=== PATIENT | female | born 1950 ===

== ENCOUNTER 2017-05-10 10:40 | Observation (INO) ==
[2017-05-10] MEDS ORDERED: Aspirin 325 MG TABLET PO ONE (10:56)
--- NOTE | 2017-05-10 11:05 | Emergency Department Note ---
Disposition Clinical Impression: TIA (transient ischemic attack) Qualifiers: Transient cerebral ischemia type: unspecified Qualified Code(s): G45.9 - Transient cerebral ischemic attack, unspecified Disposition: Admitted As Inpatient Condition: Undetermined Time of Disposition: 13:09 Headache HPI - General Chief Complaint: ED Headache Stated Complaint: Headache Time Seen by Provider: 05/10/17 10:44 Source: patient Mode of arrival: ambulatory Limitations: no limitations Nursing Notes Reviewed: Yes Vital Signs Reviewed: Yes - History of Present Illness HPI Narrative: 66-year-old female arrives to [facility] emergency department complaining of headache and neurologic symptoms. The patient states that roughly 90 and this morning the patient was leaning over putting her socks on when she noticed a little bit of perioral paresthesias, garbled speech and her niece noted a right facial droop. In addition the patient states that she had a bilateral lower extremity numbness and tingling where she felt like they were in knots. The patient's family member decided to bring the patient to the emergency room for evaluation at that time. The patient states the symptoms have subsided at this time. She arrives to the emergency department roughly 2 hours after arrival. We will not call a stroke alert given the fact that the symptoms are resolved at this time. The patient is resting comfortably in bed and answering all questions appropriate without any focal neurologic deficits. The patient is complaining of a headache with a systolic blood pressure the 200s. Pt Subjective Complaint: headache Onset (ago): hour(s) (2) Location: global Pain Severity: mild, moderate Pain Scale: 6 Quality: aching Improves with: nothing Worsens with: none Associated symptoms: Reports: numbness Treatments prior to arrival: none - Related Data Home Medications Medication Instructions Recorded Confirmed Ascorbic Acid [Vitamin C] 250 mg PO DAILY 05/10/17 05/10/17 Cyanocobalamin (Vitamin B-12) 1,000 mcg SL DAILY 05/10/17 05/10/17 [Vitamin B-12] Folic Acid 1 mg PO DAILY 05/10/17 05/10/17 Losartan Potassium [Cozaar] 50 mg PO DAILY 05/10/17 05/10/17 Metoprolol XL (24 HR) Succ [Toprol 50 mg PO DAILY 05/10/17 05/10/17 XL] Mv-Mn/FA/Vit K/Lycop/Lut/Coq10 1 tab PO DAILY 05/10/17 05/10/17 [Daily Multivitamin Capsule] Vitamin B Complex [B Complex] 1 tab PO DAILY 05/10/17 05/10/17 Allergies Allergy/AdvReac Type Severity Reaction Status Date / Time aspirin AdvReac Nausea Verified 05/10/17 12:25 ibuprofen AdvReac Nausea Verified 05/10/17 12:25 All systems ED: reviewed and negative except as stated. Constitutional: Denies: fever, chills, weakness, weight change Eyes: Denies: eye pain, eye discharge, vision change ENT ED: Denies: ear pain, throat pain, dental pain, hearing loss, epistaxis, congestion, dysphagia Cardiovascular: Denies: chest pain, palpitations, dyspnea on exertion, edema, syncope Respiratory: Denies: cough, dyspnea, wheezes, hemoptysis, stridor Gastrointestinal: Denies: abdominal pain, nausea, vomiting, diarrhea, constipation, hematemesis, melena, hematochezia Genitourinary: Denies: dysuria, frequency, hematuria, discharge Musculoskeletal: Denies: back pain, neck pain, arthralgia, myalgia Integumentary: Denies: rash, abrasion, lesions Neurological: Reports: headache, weakness, numbness. Denies: paresthesias, confusion, abnormal gait, vertigo Headache PMH - Past Medical History Medical history: Reports: cancer, other Psychiatric history: Reports: no psych history - Social History Smoking Status: Never smoker Alcohol use: Reports: none Drug use: Reports: none Physical Exam - General Limitations: no limitations General appearance: alert, in no apparent distress - Head Head exam: atraumatic, normocephalic, normal inspection - Eye Eye exam: Present: normal appearance, PERRL, EOMI - ENT ENT exam: normal exam, normal oropharynx, mucous membranes moist - Neck Neck exam: Present: normal inspection, full ROM, trachea midline - Chest Chest inspection: Present: normal inspection, symmetric chest wall rise - Respiratory Respiratory exam: Present: normal lung sounds bilaterally - Cardiovascular Cardiovascular exam: Present: regular rate, normal rhythm, normal heart sounds - Abdominal Exam Abdominal exam: Present: soft, Non-Tender. Absent: tenderness, distention, guarding, rebound, rigidity - Extremities Exam Extremities exam: Present: normal inspection, full ROM. Absent: tenderness, pedal edema - Neurological Exam Neurological exam: Present: alert, oriented X3, CN II-XII intact, normal gait. Absent: motor sensory deficit - Expanded Neurological Exam Patient oriented to: Present: person, place, time Speech: Present: fluid speech Cranial nerves: EOM function (II, III, IV, ): Normal, facial sensation (V): Normal, facial palsy (VII): Normal, gag reflex (IX): Normal, spinal accessory function (XI): Normal, tongue deviation (XII): Normal Cerebellar function: normal gait Motor strength - LUE: 5/5 Motor strength - RUE: 5/5 Motor strength - LLE: 5/5 Motor strength - RLE: 5/5 Sensory exam upper extremity: light touch: Normal Sensory exam lower extremity: light touch: Normal Coma Scale Eye Opening: Spontaneous Coma Scale Motor Response: Obeys Commands Coma Scale Verbal Response: Oriented Coma Scale Total: 15 - Skin Skin exam: Present: warm, dry, intact, normal color Course Vital Signs Temperature 98.7 F 05/10/17 10:43 Pulse Rate 87 05/10/17 10:43 Respiratory Rate 16 05/10/17 10:43 Blood Pressure 193/95 05/10/17 10:43 O2 Sat by Pulse Oximetry 100 05/10/17 10:43 Temperature 98.7 F 05/10/17 10:43 Pulse Rate 84 05/10/17 13:11 Respiratory Rate 16 05/10/17 13:27 Blood Pressure 164/91 05/10/17 13:27 O2 Sat by Pulse Oximetry 99 05/10/17 13:11 Oxygen Delivery Oxygen Delivery Room Air Headache - MDM Narrative Medical decision making narrative: Patient's neurologic deficits were resolved upon arrival to the emergency department so a stroke alert was not activated. This is likely a TIA. Workup here in the emergency department demonstrates no acute findings. We spoke with Dr. Chaudhary in neurology who agrees to plan. We will place an official consult. The patient received aspirin. We will admit the patient to the hospitalist. Patient agrees to plan. Accepted by Dr. hodge. - Lab Data Lab results reviewed: Yes I reviewed the patient's lab results. Result diagrams: 05/10/17 11:25 05/10/17 11:25 Lab Results 05/10/17 05/10/17 05/10/17 Range/Units 11:25 11:25 11:25 WBC 5.7 (4.3-11.1) K/mcL RBC 6.52 H (3.82-4.97) M/mcL Hgb 12.9 (11.5-15.4) g/dL Hct 42.8 (35.3-44.9) % MCV 65.6 L (83.0-100.0) fL MCH 19.8 L (28.0-33.3) pg MCHC 30.1 L (31.6-35.5) g/dL RDW 17.3 H (11.5-14.5) % Plt Count 266 (140-400) K/mcL MPV 8.9 L (9.4-12.4) fL Immature Gran % 0.3 (0-4) % Seg Neutrophils % 72.5 % Lymphocytes % 19.0 % Monocytes % 6.3 % Eosinophils % 1.0 % Basophils % 0.9 % Neutrophils # 4.1 (1.6-8.9) K/mcL Lymphocytes # 1.1 (0.6-4.6) K/mcL Monocytes # 0.4 (0.0-1.3) K/mcL Eosinophils # 0.1 (0.0-0.6) K/mcL Basophils # 0.1 (0.0-0.2) K/mcL Platelet Estimate Normal (Normal) Hypochromasia Present A (Not Present) Anisocytosis 1+ A (Not Present) Microcytosis Present A (Not Present) PT 10.4 (9.4-12.1) Seconds INR 1.0 APTT 31.0 (26.0-36.0) Seconds Sodium 138 (136-145) mEq/L Potassium 3.6 (3.5-4.5) mEq/L Chloride 101 (98-109) mEq/L Carbon Dioxide 27 (19-29) mEq/L BUN 11 (7-20) mg/dL Creatinine 0.78 (0.57-1.11) mg/dL Est GFR ( Amer) > 60 (> 60) Est GFR (Non-Af Amer) > 60 (> 60) BUN/Creatinine Ratio 14 (6-26) Glucose 130 H (70-99) mg/dL Calculated Osmolality 287 (280-300) Calcium 9.3 (8.6-10.8) mg/dL Urine Color (Yellow) Urine Clarity (Clear) Urine pH (5.0-8.0) pH Units Ur Specific [place] (1.010-1.025) Urine Protein (Neg-Trace) mg/dL Urine Glucose (UA) (Normal) mg/dL Urine Ketones (Negative) mg/dL Urine Blood (Negative) Urine Nitrite (Negative) Urine Bilirubin (Negative) Urine Urobilinogen (Normal) mg/dL Ur Leukocyte Esterase (Negative) Urine Microscopic RBC (0-3) per hpf Urine Microscopic WBC (0-3) per hpf Ur Squamous Epith Cells (None-Few) per lpf Urine Bacteria (None-Few) per hpf Hyaline Casts (None-Few) per lpf Ur Culture Indicated? (NO) 05/10/17 Range/Units 11:38 WBC (4.3-11.1) K/mcL RBC (3.82-4.97) M/mcL Hgb (11.5-15.4) g/dL Hct (35.3-44.9) % MCV (83.0-100.0) fL MCH (28.0-33.3) pg MCHC (31.6-35.5) g/dL RDW (11.5-14.5) % Plt Count (140-400) K/mcL MPV (9.4-12.4) fL Immature Gran % (0-4) % Seg Neutrophils % % Lymphocytes % % Monocytes % % Eosinophils % % Basophils % % Neutrophils # (1.6-8.9) K/mcL Lymphocytes # (0.6-4.6) K/mcL Monocytes # (0.0-1.3) K/mcL Eosinophils # (0.0-0.6) K/mcL Basophils # (0.0-0.2) K/mcL Platelet Estimate (Normal) Hypochromasia (Not Present) Anisocytosis (Not Present) Microcytosis (Not Present) PT (9.4-12.1) Seconds INR APTT (26.0-36.0) Seconds Sodium (136-145) mEq/L Potassium (3.5-4.5) mEq/L Chloride (98-109) mEq/L Carbon Dioxide (19-29) mEq/L BUN (7-20) mg/dL Creatinine (0.57-1.11) mg/dL Est GFR ( Amer) (> 60) Est GFR (Non-Af Amer) (> 60) BUN/Creatinine Ratio (6-26) Glucose (70-99) mg/dL Calculated Osmolality (280-300) Calcium (8.6-10.8) mg/dL Urine Color Yellow (Yellow) Urine Clarity Clear (Clear) Urine pH 7.5 (5.0-8.0) pH Units Ur Specific [place] 1.011 (1.010-1.025) Urine Protein Negative (Neg-Trace) mg/dL Urine Glucose (UA) Normal (Normal) mg/dL Urine Ketones Negative (Negative) mg/dL Urine Blood Negative (Negative) Urine Nitrite Negative (Negative) Urine Bilirubin Negative (Negative) Urine Urobilinogen Normal (Normal) mg/dL Ur Leukocyte Esterase Trace H (Negative) Urine Microscopic RBC 0-3 (0-3) per hpf Urine Microscopic WBC 5-15 H (0-3) per hpf Ur Squamous Epith Cells Many H (None-Few) per lpf Urine Bacteria None Seen (None-Few) per hpf Hyaline Casts None Seen (None-Few) per lpf Ur Culture Indicated? YES A (NO) - Radiology Data Radiology results reviewed: Yes I reviewed the patient's radiology results. Attestation Statement - Attestation Attestation: I, Inocencio Hay, examined this patient and my medical decision-making was reviewed with the DRESSING MACHINE OPERATOR/PA/Advanced Practice Nurse/Resident Physician. I agree with the documented findings, disposition and treatment plan as described except to the extent set forth below. 66-year-old female presents to emergency Department with concerns of possible TIA. Patient states she was in the restroom when she developed acute onset of tingling of the right lower face. Patient states she became lightheaded and lowered herself to the ground. Family members found the patient sitting against a wall, having word finding difficulty as well as slurred speech. Family members also state that there was a right lower facial droop. Unclear patient had other focal neurologic deficits. Symptoms lasted for about 10-15 minutes before resolving completely. Patient is at her baseline emergency department. CT that did not show evidence of acute intracanal hemorrhage or mass. Patient will be admitted to the hospital for further care and evaluation. NIH Stroke Scale - Level of Consciousness LOC: Alert - LOC Questions LOC Questions: Answers both correctly - LOC Commands LOC Commands: Performs both correctly - Best Gaze Best Gaze: Normal - Visual Visual: No visual loss - Facial Palsy Facial Palsy: Normal - Motor Arms Motor Arm-Left: No drift for 10 seconds Motor Arm-Right: No drift for 10 seconds - Motor Legs Motor Leg-Left: No drift for 5 seconds Motor Leg-Right: No drift for 5 seconds - Limb Ataxia Limb Ataxia: Normal, No Ataxia - Sensory Sensory: Normal - Best Language Best Language: No aphasia - Dysarthria Dysarthria: Normal - Extinction and Inattention Extinction and Inattention: Normal - NIHSS Total Score NIHSS Total Score: 0
[2017-05-10 11:39] LABS: Basophils # 0.1 K/mcL (0.0-0.2); Basophils % 0.9 %; Eosinophils # 0.1 K/mcL (0.0-0.6); Hematocrit 42.8 % (35.3-44.9); Hemoglobin 12.9 g/dL (11.5-15.4); Immature Granulocytes % 0.3 % (0-4); Lymphocytes # 1.1 K/mcL (0.6-4.6); Mean Corpuscular HGB Conc 30.1 g/dL (31.6-35.5); Mean Corpuscular Hemoglobin 19.8 pg (28.0-33.3); Mean Corpuscular Volume 65.6 fL (83.0-100.0); Mean Platelet Volume 8.9 fL (9.4-12.4); Monocytes # 0.4 K/mcL (0.0-1.3); Monocytes % 6.3 %; Platelet Count 266 K/mcL (140-400); Red Blood Count 6.52 M/mcL (3.82-4.97); Red Cell Distribution Width 17.3 % (11.5-14.5); Segmented Neutrophils % 72.5 %
[2017-05-10 11:40] LABS: Neutrophils # 4.1 K/mcL (1.6-8.9)
[2017-05-10 11:49] LABS: Prothrombin Time 10.4 Seconds (9.4-12.1)
[2017-05-10 11:50] LABS: BUN/Creatinine Ratio 14 (6-26); Blood Urea Nitrogen 11 mg/dL (7-20); Calcium 9.3 mg/dL (8.6-10.8); Carbon Dioxide 27 mEq/L (19-29); Chloride 101 mEq/L (98-109); Glucose 130 mg/dL (70-99); Osmolality,Calculated 287 (280-300); Potassium 3.6 mEq/L (3.5-4.5); Sodium 138 mEq/L (136-145); eGFR For African Americans > 60 (> 60); eGFR For Non-African Americans > 60 (> 60)
[2017-05-10 12:00] LABS: Anisocytosis 1+ (Not Present); Hypochromasia Present (Not Present); Microcytosis Present (Not Present); Platelet Estimate Normal (Normal)
[2017-05-10 12:20] LABS: Bilirubin,Urine Negative (Negative); Blood,Urine Negative (Negative); Clarity,Urine Clear (Clear); Color,Urine Yellow (Yellow); Glucose,Urine (UA) Normal (Normal); Ketones,Urine Negative (Negative); Leukocyte Esterase,Urine Trace (Negative); Nitrite,Urine Negative (Negative); PH,Urine 7.5 pH Units (5.0-8.0); Protein,Urine Negative (Neg-Trace); Specific Gravity,Urine 1.011 (1.010-1.025); Urobilinogen,Urine Normal (Normal)
[2017-05-10 12:21] LABS: Bacteria,Urine None Seen per hpf (None-Few); Hyaline Casts,Urine None Seen per lpf (None-Few); RBC,Urine 0-3 per hpf (0-3); Squamous Epithelial Cell,Urine Many per lpf (None-Few)
[2017-05-10] MEDS ORDERED: Naloxone 0.4 MG/ML INJ IVP PRN (14:11)
--- NOTE | 2017-05-10 14:27 | Internal Med History&Physical ---
<Glenn Carson J - Last Filed: 05/10/17 14:17> Date of Encounter: 05/10/17 Time of Encounter: 14:17 Assessment and Plan (1) TIA (transient ischemic attack) Current visit: Yes Status: Acute No focal neuro deficits at time of assessment, all symptoms have resolved. Patient resting comfortably without distress. Will continue to r/o TIA. MRI in am Echocardiogram Carotid dopper lipid panel Qualifiers: Transient cerebral ischemia type: unspecified Qualified Code(s): G45.9 - Transient cerebral ischemic attack, unspecified (2) Intermittent paresthesia of right hand and foot Current visit: Yes Status: Acute see above (3) Facial droop Current visit: Yes Status: Acute see above (4) HTN (hypertension) Current visit: Yes Status: Acute usually controlled at home, uncontrolled in ED. Has not take home BP meds today. Will restart BB and ARB, continue to monitor hemodynamic status Qualifiers: Hypertension type: essential hypertension Qualified Code(s): I10 - Essential (primary) hypertension (5) UTI (urinary tract infection) Current visit: Yes Status: Suspected UA in ED reveals trace leuks, does not appear to be UTI, will hold off on ATB coverage for now, await C&S Qualifiers: Hematuria presence: without hematuria Qualified Code(s): N39.0 - Urinary tract infection, site not specified (6) DVT prophylaxis Current visit: Yes Status: Acute Internal Medicine - H&P: HPI Chief complaint: HTN, H/A, neuro symptoms Admitted From: Home Plans for Post Hospital Care: Home History of present illness: Ms. Morgan is a 66 year old female with a PMH of ovarian cancer, HLD, and HTN, present to [facility] with a C/O headache and neurological symptoms which began this morning. She states that around 0900 she began experiencing right sided facial N/T, Rt facial droop, RUE and RLE n/t and some speech slurring. At time of arrival to ED she was hypertensive but the neurologic symptoms had resolved. ED assessment reveals no focal neuro deficits, CT head unremarkable. Lab work unremarkable. Neuro was consulted and is concerned for TIA. She is being admited for further workup and evaluation. Past Med Surg Social Fam HX - Past Medical History Medical history: cancer, other Psychiatric history: no psych history - Social History Smoking Status: Never smoker Smokeless Tobacco Status: No Alcohol use: none Drug use: none - Additional Family History Additional family history: non contributory Internal Medicine - H&P: Meds Ascorbic Acid [Vitamin C] 250 mg PO DAILY 05/10/17 [History] Cyanocobalamin (Vitamin B-12) [Vitamin B-12] 1,000 mcg SL DAILY 05/10/17 [ History] Folic Acid 1 mg PO DAILY 05/10/17 [History] Losartan Potassium [Cozaar] 50 mg PO DAILY 05/10/17 [History] Metoprolol XL (24 HR) Succ [Toprol XL] 50 mg PO DAILY 05/10/17 [History] Mv-Mn/FA/Vit K/Lycop/Lut/Coq10 [Daily Multivitamin Capsule] 1 tab PO DAILY 05/10 [History] Vitamin B Complex [B Complex] 1 tab PO DAILY 05/10/17 [History] 3 Allergy/AdvReac Type Severity Reaction Status Date / Time shellfish derived Allergy Severe Anaphylaxis Verified 05/10/17 15:25 aspirin AdvReac Nausea Verified 05/10/17 12:25 ibuprofen AdvReac Nausea Verified 05/10/17 12:25 All Systems PM: A 10-system review of systems was performed and is negative for pertinent findings except as documented above in the HPI. - Constitutional Constitutional: no chills, no fever(s), no night sweats - EENT Eyes: blurry vision (Lt eye that is chronic), no change in vision, no discharge , no pain, no photophobia Ears: no ear discharge, no ear pain, no tinnitus Nose, mouth and throat: no dysphagia, no nasal discharge, no neck pain, no sore throat - Cardiovascular Cardiovascular ROS IM: no chest pain, no diaphoresis, no dyspnea, no lightheadedness, no palpitations, no syncope - Respiratory Respiratory: no cough, no dyspnea, no wheezing, no excessive phlegm production - Gastrointestinal Gastrointestinal: no abdominal pain, no diarrhea, no hematemesis, no hematochezia, no melena, no nausea, no vomiting - Genitourinary Genitourinary: no change in urinary stream, no dysuria, no flank pain, no hematuria - Musculoskeletal Musculoskeletal ROS IM: no numbness, no tingling - Integumentary Integumentary IM: no rash, no unusual bruising - Neurological Neurological ROS: as per HPI, headache(s) (which as now subsided), paresthesias (Which has now resolved), no confusion, no convulsions, no dizziness, no focal weakness, no tingling, no tremor(s) - Hematologic/Lymphatic Hematologic/Lymphatic: no easy bruising - Constitutional Vitals: Temp Pulse Resp BP Pulse Ox 98.7 F 84 16 164/91 99 05/10/17 10:43 05/10/17 13:11 05/10/17 13:27 05/10/17 13:27 05/10/17 13:11 General appearance: Present: cooperative, A&O X 3, no acute distress, answers questions appropriately - Head Head exam: Present: atraumatic, normocephalic - Eye Eye exam: Present: PERRL, conjuntiva pink, sclera anicteric Pupils: Present: PERRL - Neck Neck exam general surgery: Present: supple, trachea midline. Absent: lymphadenopathy - Respiratory Respiratory exam: Present: CTAB. Absent: accessory muscle use, rales, rhonchi, wheezes - Cardiovascular Cardiovascular exam: Present: RRR, +S1, +S2. Absent: diastolic murmur, gallop, rubs, systolic murmur - GI/Abdominal GI/Abdominal exam: Present: normal bowel sounds, soft, no peritoneal signs. Absent: distended, tenderness - Extremities Exam Extremities exam: Present: warm, radial pulses palpable and symmetrical. Absent : calf tenderness, cyanotic, pedal edema - Neurological Exam Neurological exam: Present: CN II-XII intact, oriented X3, no focal deficits. Absent: pronater drift, facial droop, speech deficit - Skin Skin exam: Present: dry, intact Internal Med - H&P Results - Labs CBC & Chem 7: 05/10/17 11:25 05/10/17 11:25 - Diagnostic Studies CT scan - head Status: image reviewed by me Additional comments: no acute intracranial abnormalities <Clarence Cortes - Last Filed: 05/10/17 18:27> Date of Encounter: 05/10/17 Internal Medicine - H&P: HPI History of present illness: Ms. Morgan is a 66 year old female All Systems PM: A 10-system review of systems was performed and is negative for pertinent findings except as documented above in the HPI. - Constitutional Vitals: Temp Pulse Resp BP Pulse Ox 98.8 F 98 19 180/90 98 05/10/17 14:44 05/10/17 14:44 05/10/17 14:44 05/10/17 14:44 05/10/17 14:44 Internal Med - H&P Results - Labs CBC & Chem 7: 05/10/17 11:25 05/10/17 11:25 Labs: Cardiac Enzymes 05/10/17 Range/Units 14:42 Troponin I 0.00 (0-0.03) ng/mL - Attending Attestation I have personally performed a face to face evaluation on this patient and I discussed the assessment and plan with the nurse practitioner. I have reviewed and agree with the documented care plan. History and Exam by me shows: Ms. Morgan is a 66 year old female with a PMH of ovarian cancer, HLD, and HTN, present to [facility] with a C/O headache and neurological symptoms which began this morning. She states that around 0900 she began experiencing right sided facial N/T, Rt facial droop, RUE and RLE n/t and some speech slurring. At time of arrival to ED she was hypertensive but the neurologic symptoms had resolved. ED assessment reveals no focal neuro deficits, CT head unremarkable. Lab work unremarkable. Gen: A,A, O x3 Neuro: Competely benign a/p 1. Acute TIA will get MRI of brain, Echo and Carotid doppler cont ASA Check FLP in AM
[2017-05-10] MEDS: Metoprolol XL (24 HR) Succ 50 MG TAB.ER.24H PO SCH (15:03)
--- NOTE | 2017-05-10 18:00 | Neurology - Consult Note ---
Date of Encounter: 05/10/17 Time of Encounter: 17:57 Assessment and Plan (1) TIA (transient ischemic attack) Current Visit: Yes Status: Acute I think the reasons for today's event are multifactorial. It is possible that she may have had a small TIA which might explain the initial slurred speech and left facial droop. However this does not explain her loss of consciousness nor does it explain the perioral numbness and leg weakness. I think that she may have experienced a vasovagal event associated with this Excessive coughing this morning. Echocardiogram and carotid duplex Doppler studies are yet pending. I will recommend keeping her on stroke protocol orders until her tests are interpreted. Further recommendations will be made tomorrow. Qualifiers: Transient cerebral ischemia type: unspecified Qualified Code(s): G45.9 - Transient cerebral ischemic attack, unspecified History of Present Illness HPI: Ms. Morgan is a 66 year old female who was seen for neurologic consultation at the request of the internal medicine group regarding decreased level of consciousness. The patient informs me that she awakened this morning at about 7 :00. She was scheduled to have cataract surgery completed today. She had been nothing by mouth since 8:00 the night before. At about 9:00 this morning she used her eyedrops to prepare for the procedure. She states that afterwards she noticed that her tremor was very dry and she started coughing excessively. She identified some numbness in the lips and her legs felt weak and apparently she briefly lost consciousness. Her daughter arrived about 20 minutes or so after 9 to find her on the floor slightly confused but she was conscious. As the day has progressed on she return to her normal baseline. She did have a headache earlier today. Upon arrival to the ED her blood pressure was elevated at 193/ 95. Random blood sugar was in the 130s. Since admission she has had an MRI scan of the brain which does reveal significant to both matter hyperintensities , however does not reveal evidence of an acute infarct. She was sensitive to slight left facial droop and slurred speech initially. Past Med Surg Social Fam HX - Past Medical History Medical history: cancer, other Psychiatric history: no psych history - Past Surgical History Surgical History: cancer surgery, hysterectomy - Social History Smoking Status: Never smoker Smokeless Tobacco Status: No Alcohol use: none Drug use: none - Family History Mother Living Status: Hx Family Cardiac Disorders: Yes Hx Family Respiratory Disorders: No Hx Family Cancer: Yes Hx Family GI Disorders: No Hx Family Genitourinary Disorders: No Hx Family Endocrine Disorder: No Hx Family Musculoskeletal Disorders: No Hx Family Neuromuscular Disorders: No Hx Family Neurologic Disorders: No Hx Family HEENT Disorders: No Hx Family Autoimmune Disorders: No Hx Family Reproductive Disorders: No Hx Family Psychosocial Disorders: No Hx Family Medical Disorders: No Medications and Allergies Ascorbic Acid [Vitamin C] 250 mg PO DAILY 05/10/17 [History] Cyanocobalamin (Vitamin B-12) [Vitamin B-12] 1,000 mcg SL DAILY 05/10/17 [ History] Folic Acid 1 mg PO DAILY 05/10/17 [History] Losartan Potassium [Cozaar] 50 mg PO DAILY 05/10/17 [History] Metoprolol XL (24 HR) Succ [Toprol XL] 50 mg PO DAILY 05/10/17 [History] Mv-Mn/FA/Vit K/Lycop/Lut/Coq10 [Daily Multivitamin Capsule] 1 tab PO DAILY 05/10 [History] Vitamin B Complex [B Complex] 1 tab PO DAILY 05/10/17 [History] 3 Allergy/AdvReac Type Severity Reaction Status Date / Time shellfish derived Allergy Severe Anaphylaxis Verified 05/10/17 15:25 aspirin AdvReac Nausea Verified 05/10/17 12:25 ibuprofen AdvReac Nausea Verified 05/10/17 12:25 All Systems: A 10-system review of systems was performed and is negative for pertinent findings except as documented above in the HPI. Review of Systems: 10 point review of systems is consistent with the history of present illness, otherwise negative. Physical Examination - Vital Signs Vital Signs: Initial Vital Signs Temp Pulse Resp BP Pulse Ox 98.7 F 87 16 193/95 100 05/10/17 10:43 05/10/17 10:43 05/10/17 10:43 05/10/17 10:43 05/10/17 10:43 - Neurologic Detailed motor examination: full strength in all major muscle groups Motor examination - right side: 5/5: deltoids, biceps, triceps, wrist flexion, wrist extension, licensed audiologist, hip flexors, tibialis Anterior, quadriceps, toe extension (EHL), plantarflexion Motor examination - left side: 5/5: deltoids, biceps, triceps, wrist flexion, wrist extension, hip flexors, licensed audiologist, quadriceps, tibialis Anterior, toe extension (EHL), plantarflexion Mental Status Examination: awake, alert, oriented to person, oriented to place, oriented to time, follows commands appropriately, answers questions appropriately, no agnosia, no aphasia, no aproxia Cranial nerve examination: PERRL, EOMI, visual painter intact, corneal reflexes brisk symmetrically, sensory to face intact, mastication intact, no facial asymmetry is present, no dysarthria, hearing is intact symmetrically, soft palate elevates bilaterally upon phonation, gag reflex intact, flexes SCM and trapezius muscles symmetrically with full power, tongue protrudes midline, no atrophy or facial fasiculations present Cerebellar examination: no dysmetria, performs finger to nose and heel to morales symmetrically without ataxia, no gait ataxia, no truncal ataxia, no difficulty with rapid alternating movements Results - Laboratory Findings CBC and BMP: 05/10/17 11:25 05/10/17 11:25 Abnormal lab findings: Abnormal lab results RBC 6.52 M/mcL (3.82-4.97) H 05/10/17 11:25 MCV 65.6 fL (83.0-100.0) L 05/10/17 11:25 MCH 19.8 pg (28.0-33.3) L 05/10/17 11:25 MCHC 30.1 g/dL (31.6-35.5) L 05/10/17 11:25 RDW 17.3 % (11.5-14.5) H 05/10/17 11:25 MPV 8.9 fL (9.4-12.4) L 05/10/17 11:25 Hypochromasia Present (Not Present) A 05/10/17 11:25 Anisocytosis 1+ (Not Present) A 05/10/17 11:25 Microcytosis Present (Not Present) A 05/10/17 11:25 Glucose 130 mg/dL (70-99) H 05/10/17 11:25 Ur Leukocyte Esterase Trace (Negative) H 05/10/17 11:38 Urine Microscopic WBC 5-15 per hpf (0-3) H 05/10/17 11:38 Ur Squamous Epith Cells Many per lpf (None-Few) H 05/10/17 11:38 Ur Culture Indicated? YES (NO) A 05/10/17 11:38 Consult Discharge Plan - Plan Referrals: Tayla Negrete MD [Primary Care Provider] -
--- NOTE | 2017-05-10 22:55 | Carotid Imaging Report ---
Carotid Duplex Patient Name:Elissa Morgan Order Number:[id number] Procedure Date:05/10/2017 Date:8Age:66 yrs Gender:Female Rt.BP:180 / 90 mmHgHeart Rate: Location:[facility] Room #: 14 Stress Test Technician:Theresa Manzano, CHACHA, RVT Referring MD:Glenn Carson, CERTIFIED PERSONAL TRAINER Reading MD:Chemo Rader MD , FACS Primary Indications:TIA/CVA Risk Factors Yes/No Hypertension Yes Hypercholesterolemia Yes Impressions: Findings: Bilateral carotid systems are essentially normal. Findings Carotid Duplex: Right: The right proximal common carotid artery has a PSV of 50 cm/s and a EDV of 11 cm/s. The right mid common carotid artery has a PSV of 55 cm/s and a EDV of 13 cm/s. The right distal common carotid artery has a PSV of 56 cm/s and a EDV of 16 cm/s. The right bifurcation has a PSV of 54 cm/s and a EDV of 14 cm/s. The right proximal internal carotid artery has a PSV of 57 cm/s and a EDV of 21 cm/s. The right mid internal carotid artery has a PSV of 70 cm/s and a EDV of 26 cm/s. The right distal internal carotid artery has a PSV of 77 cm/s and a EDV of 24 cm/s. The right eca has a PSV of 149 cm/s and a EDV of 14 cm/s. The right vertebral artery has a PSV of 59 cm/s and a EDV of 11 cm/s. There is antegrade spectral Doppler flow patterns. Left: The left proximal common carotid artery has a PSV of 60 cm/s and a EDV of 13 cm/s. The left mid common carotid artery has a PSV of 71 cm/s and a EDV of 15 cm/s. The left distal common carotid artery has a PSV of 72 cm/s and a EDV of 18 cm/s. The left bifurcation has a PSV of 74 cm/s and a EDV of 16 cm/s. The left proximal internal carotid artery has a PSV of 39 cm/s and a EDV of 12 cm/s. The left mid internal carotid artery has a PSV of 54 cm/s and a EDV of 16 cm/s. The left distal internal carotid artery has a PSV of 56 cm/s and a EDV of 14 cm/s. The left eca has a PSV of 102 cm/s and a EDV of 12 cm/s. The left vertebral artery has a PSV of 55 cm/s and a EDV of 15 cm/s. There is antegrade spectral Doppler flow patterns. Prior Study: No prior study available for comparison. Carotid Results Right PSV EDV Assessment Proximal CCA 50 11 Mid CCA 55 13 Distal CCA 56 16 Bifurcation 54 14 Proximal ICA 57 21 Mid ICA 70 26 Distal ICA 77 24 ECA 149 14 Vertebral Artery 59 11 Antegrade Flow Left PSV EDV Assessment Proximal CCA 60 13 Mid CCA 71 15 Distal CCA 72 18 Bifurcation 74 16 Proximal ICA 39 12 Mid ICA 54 16 Distal ICA 56 14 ECA 102 12 Vertebral Artery 55 15 Antegrade Flow Ratio's Right ICA/CCA Ratio: 1.40 ICA/CCA Values: 77/55 Left ICA/CCA Ratio: 0.79 ICA/CCA Values: 56/71 Updated by Chemo Rader MD, FACS on 05/10/2017 10:48:58 PM Chemo Rader MD electronically signed on 05/10/2017 10:49:19 PM with status of Final
[2017-05-11] MEDS: *HR* Enoxaparin 40 MG/0.4 ML SYRINGE SQ SCH (05:55)
[2017-05-11 06:03] LABS: Hematocrit 40.5 % (35.3-44.9); Hemoglobin 12.4 g/dL (11.5-15.4); Mean Corpuscular HGB Conc 30.6 g/dL (31.6-35.5); Mean Corpuscular Hemoglobin 20.2 pg (28.0-33.3); Platelet Count 260 K/mcL (140-400); Red Blood Count 6.14 M/mcL (3.82-4.97); Red Cell Distribution Width 17.5 % (11.5-14.5)
[2017-05-11 06:20] LABS: BUN/Creatinine Ratio 13 (6-26); Blood Urea Nitrogen 13 mg/dL (7-20); Calcium 9.1 mg/dL (8.6-10.8); Carbon Dioxide 25 mEq/L (19-29); Chloride 103 mEq/L (98-109); Chol/HDL Ratio 4.8 (0-4.9); Cholesterol 257 mg/dL (< 200); Glucose 120 mg/dL (70-99); HDL Cholesterol 54 mg/dL (40-59); LDL Cholesterol,Calculated 139 mg/dL (0-99); Osmolality,Calculated 291 (280-300); Potassium 3.6 mEq/L (3.5-4.5); Sodium 140 mEq/L (136-145); Triglycerides 319 mg/dL (< 150); eGFR For African Americans > 60 (> 60); eGFR For Non-African Americans 55 (> 60)
[2017-05-11] MEDS: Multivit/Ca/Min/Fe/FA 1 TAB TABLET PO SCH (08:18)
[2017-05-11] MEDS: Ascorbic Acid 500 MG TABLET PO SCH (08:18)
[2017-05-11] MEDS: Metoprolol XL (24 HR) Succ 50 MG TAB.ER.24H PO SCH (08:18)
[2017-05-11] MEDS: Aspirin Enteric Coated 81 MG Tablet PO SCH (08:18)
[2017-05-11] MEDS: Cyanocobalamin (B-12) 1,000 MCG TABLET PO SCH (08:18)
[2017-05-11] MEDS: Folic Acid 1 MG TABLET PO SCH (08:19)
[2017-05-11] MEDS ORDERED: Vitamin B Complex/Vit C/Vit E 1 EACH TABLET PO SCH ×2 (09:00)
[2017-05-11] MEDS ORDERED: NON-FORMULARY MEDICATION 1 EACH EACH (Mv-Mn/Fa/Vit K/Lycop/Lut/Coq10 [Daily Multivitamin C PO SCH (09:00)
--- NOTE | 2017-05-11 11:05 | Discharge Summary ---
Date of Encounter: 05/11/17 Time of Encounter: 08:45 - Discharge Diagnosis (1) TIA (transient ischemic attack) Priority: Secondary Status: Acute Comments: Pt most likely had TIA on admission. Brain MRI and CT negative for acute, chronic changes noted. Pt has returned to baseline, no numbness, tingling or weakness to right side and no facial droop noted. Speech is clear and pt is able to eat and drink. Bilateral carotids are essentially normal. She denies n/v /d, abd pain, dizziness, headache, lightheadedness, sycope or presyncope. Neurology is following. Brain MRI 05/10/17 09:00 IMPRESSION: No evidence of acute ischemia. Moderate chronic small vessel ischemic disease within the periventricular and subcortical white matter of both cerebral hemispheres. D/ / 05/10/2017 16:37:36 Tre Cano MD / [facility] Interpreting Provider: Tre Cano MD Chest X-Ray 05/10/17 10:55 IMPRESSION: No acute cardiopulmonary disease. D/ / 05/10/2017 11:20:23 Niraj Lynch MD / [facility] Interpreting Provider: Niraj Lynch MD Head CT 05/10/17 10:55 IMPRESSION: 1. No acute intracranial abnormality. 2. Chronic small vessel ischemic disease. D/ / Rafa Pimentel MD / Rafa Pimentel MD Interpreting Provider: Rafa Pimentel MD Echocardiogram 05/10/17 13:47 Impressions: LVEF 60%. Normal left ventricular size and systolic function. There is evidence of mild diastolic dysfunction of the left ventricle. Normal right ventricular size and function. No significant valvular dysfunction. No pulmonary hypertension. There is no evidence of a PFO with agitated saline contrast. Left Ventricular Wall Motion: Rest Echo Findings All wall segments showed normal motion. Qualifiers: Transient cerebral ischemia type: unspecified Qualified Code(s): G45.9 - Transient cerebral ischemic attack, unspecified (2) HTN (hypertension) Priority: Secondary Status: Chronic Comments: Well controlled in inpatient setting. Continue home medications. Qualifiers: Hypertension type: essential hypertension Qualified Code(s): I10 - Essential (primary) hypertension (3) Intermittent paresthesia of right hand and foot Priority: Secondary Status: Resolved Comments: Resovled. Pt denies today. No focal deficits during assessment. (4) Facial droop Priority: Secondary Status: Resolved Comments: Resolved. (5) UTI (urinary tract infection) Priority: Secondary Status: Suspected Comments: Pt denies any urinary s/s today. No dysuria, no flank pain, abd pain, n/v, urgency, or increased frequency. Pt has not been treated due to urine only showing trace leukocytosis. Culture is pending, can notify her at home if antibiotic is needed. Qualifiers: Hematuria presence: without hematuria Qualified Code(s): N39.0 - Urinary tract infection, site not specified (6) DVT prophylaxis Priority: Secondary Status: Acute Comments: Lovenox SQ. - Discharge Medications Prescriptions: RX: Simvastatin [Zocor] 20 mg PO HS #30 tablet Home Medications: Mv-Mn/FA/Vit K/Lycop/Lut/Coq10 [Daily Multivitamin Capsule] 1 tab PO DAILY 05/10 [History] RX: Ascorbic Acid [Vitamin C] 250 mg PO DAILY 05/10/17 [History] RX: Cyanocobalamin (Vitamin B-12) [Vitamin B-12] 1,000 mcg SL DAILY 05/10/17 [ History] RX: Folic Acid 1 mg PO DAILY 05/10/17 [History] RX: Losartan Potassium [Cozaar] 50 mg PO DAILY 05/10/17 [History] RX: Metoprolol XL (24 HR) Succ [Toprol Xl] 50 mg PO DAILY 05/10/17 [History] RX: Vitamin B Complex [B Complex] 1 tab PO DAILY 05/10/17 [History] RX: Aspirin Enteric Coated [Aspirin EC] 81 mg PO DAILY tablet. 05/11/17 [Rx] RX: Multivit/Ca/Min/Fe/FA [Thera M Plus] 1 tab PO DAILY tablet 05/11/17 [Rx] RX: Simvastatin [Zocor] 20 mg PO HS #30 tablet 05/11/17 [Rx] Allergies/Adverse Reactions: 3 Allergy/AdvReac Type Severity Reaction Status Date / Time shellfish derived Allergy Severe Anaphylaxis Verified 05/10/17 15:25 aspirin AdvReac Nausea Verified 05/10/17 12:25 ibuprofen AdvReac Nausea Verified 05/10/17 12:25 Procedures/tests Complete & Pending: Procedures Performed prior 72 hours Category Date Time Status MR head/brain wo con [MR] Routine MRI 05/10/17 09:00 Completed ECG 12 lead ECG [ECG] Stat Y 05/10/17 14:28 Ordered EV carotid duplex imaging BI Routine Y 05/10/17 16:16 Completed EV echocardiogram Routine Y 05/10/17 13:47 Completed Date of admission: 05/10/17 13:15 Primary care physician: Tayla Negrete MD Discharging clinician: Kami Maier Anticipated date of discharge: 05/11/17 - Patient Status Disposition: Home, Self-Care Condition: Good Functional capacity at discharge: independent ambulation Overall status at discharge: patient is back to baseline - Discharge Instructions Instructions: Transient Ischemic Attack (DC), Chronic Hypertension (DC) Follow Up With: Tayla Negrete MD [Primary Care Provider] - Additional Instructions: Follow up with your PCP in the next 7-10 days for a hospital follow up visit. Continue your normal home medications, resume your normal activities as tolerated. Return to the ER as needed for any other problems or concerns or if your symptoms return or worsen. Continue taking ASA as long as it is enteric coated. We will call you if you have any abnormal test results from your urine culture. - Diet and Activity Activity: increase activity as tolerated, resume usual activities as tolerated Diet: advance to your usual diet Hospital course: Ms. Morgan is a 66 year old female with a PMH of ovarian cancer, HLD, and HTN, present to [facility] with a C/O headache and neurological symptoms which began this morning. She states that around 0900 on day of admission, she began experiencing right sided facial numbness and tingling, right sided facial droop , RUE and RLE numbness and tingling, and slurred speech. At time of arrival to ED she was hypertensive but the neurologic symptoms had resolved. Initial workukp was negative, neuro was consulted and is concerned for TIA. Brain MRI and CT both were negative for acute processes, chronic changes were noted. Chest xray was negative for acute disease. Bilateral carotids are essentially normal, echo with LVEF 60%, normal LV systolic function and miled LVDD, no significant valvular dysfunction, and no evidence of PFO. Pt's labs ar WNL other than lipid panel. vitals have been WNL and stable. Pt is going to be started on a statin and will continue ASA at home. Pt has been seen by neuology, who is concerned for TIA. They will evaluate results of echo and carotids and I will wait on other recommendations prior to discharge. All symptoms have resolved and pt states that she is back to her baseline and is ready to return home to care for her 88 year old who has Alzheimer' s. She denies headache, n/v/d, blurred vision, dizziness, lightheadedness, abdominal pain, syncope or presyncope. Pt will follow up with PCP for continued evaluation. Pt is stable for discharge. - Time Spent with Patient Total time spent providing and/or coordinating discharge services: Less than 30 minutes - Constitutional Vitals: Temp Pulse Resp BP Pulse Ox 98.1 F 72 18 159/80 99 05/11/17 06:53 05/11/17 06:53 05/11/17 06:53 05/11/17 06:53 05/11/17 06:53 General appearance: Present: cooperative, A&O X 3, pleasant, no acute distress, answers questions appropriately. Absent: mild distress - Head Head exam: Present: atraumatic, normal inspection, normocephalic - Eye Eye exam: Present: EOMI, normal appearance, conjuntiva pink, sclera anicteric - Neck Neck exam general surgery: Present: supple, trachea midline. Absent: lymphadenopathy, tenderness - Respiratory Respiratory exam: Present: CTAB. Absent: accessory muscle use, rales, rhonchi, wheezes - Cardiovascular Cardiovascular exam: Present: RRR, +S1, +S2. Absent: diastolic murmur, gallop, rubs, systolic murmur - GI/Abdominal GI/Abdominal exam: Present: normal bowel sounds, soft, no peritoneal signs. Absent: distended, hepatomegaly, tenderness - Extremities Exam Extremities exam: Present: normal capillary refill, normal inspection, warm, radial pulses palpable and symmetrical. Absent: calf tenderness, cyanotic, pedal edema, tenderness - Neurological Exam Neurological exam: Present: alert, oriented X3, no focal deficits, strengths equal and symetr throughout. Absent: altered, pronater drift, facial droop, speech deficit - Expanded Neurological Exam Neurological exam expanded: Absent: expressive aphasia Cranial Nerves: tongue deviation PM: Normal Cerebellar function: heel to morales: Normal Coma Scale Eye Opening: Spontaneous Coma Scale Motor Response: Obeys Commands Coma Scale Verbal Response: Oriented Coma Scale Total: 15 - Skin Skin exam: Present: dry, intact, normal color, warm. Absent: rash
[2017-05-12] MEDS: *HR* Enoxaparin 40 MG/0.4 ML SYRINGE SQ SCH (06:37)
[2017-05-12] MEDS: Ascorbic Acid 500 MG TABLET PO SCH (09:26)
[2017-05-12] MEDS: Multivit/Ca/Min/Fe/FA 1 TAB TABLET PO SCH (09:26)
[2017-05-12] MEDS: Cyanocobalamin (B-12) 1,000 MCG TABLET PO SCH (09:27)
[2017-05-12] MEDS: Aspirin Enteric Coated 81 MG Tablet PO SCH (09:27)
[2017-05-12] MEDS: Metoprolol XL (24 HR) Succ 50 MG TAB.ER.24H PO SCH (09:27)
[2017-05-12] MEDS: Folic Acid 1 MG TABLET PO SCH (09:27)
--- NOTE | 2017-05-12 09:30 | Internal Med Progress Note ---
Date of Encounter: 05/12/17 Time of Encounter: 08:15 - Assessment and plan (1) TIA (transient ischemic attack) Current Visit: Yes Status: Acute Assessment and plan: Most likely TIA. Symptoms had resolved prior to admission. Work up was negatiive. Labs have been WNL and vitals have been stable. Pt remains slightly hypertensive and will change medications and recommend that pt follow up with PCP for continued monitoring and any necessary medication adjustments. Echo and carotids were negative, pt did not need to be seen by Dr. Chaudhary, we spoke to him by phone to verify, pt is ready for discharge. Brain MRI 05/10/17 09:00 IMPRESSION: No evidence of acute ischemia. Moderate chronic small vessel ischemic disease within the periventricular and subcortical white matter of both cerebral hemispheres. D/ / 05/10/2017 16:37:36 Tre Cano MD / [facility] Interpreting Provider: Tre Cano MD Chest X-Ray 05/10/17 10:55 IMPRESSION: No acute cardiopulmonary disease. D/ / 05/10/2017 11:20:23 Niraj Lynch MD / [facility] Interpreting Provider: Niraj Lynch MD Head CT 05/10/17 10:55 IMPRESSION: 1. No acute intracranial abnormality. 2. Chronic small vessel ischemic disease. D/ / Rafa Pimentel MD / Rafa Pimentel MD Interpreting Provider: Rafa Pimentel MD Echocardiogram 05/10/17 13:47 Impressions: LVEF 60%. Normal left ventricular size and systolic function. There is evidence of mild diastolic dysfunction of the left ventricle. Normal right ventricular size and function. No significant valvular dysfunction. No pulmonary hypertension. There is no evidence of a PFO with agitated saline contrast. Left Ventricular Wall Motion: Rest Echo Findings All wall segments showed normal motion. Qualifiers: Transient cerebral ischemia type: unspecified Qualified Code(s): G45.9 - Transient cerebral ischemic attack, unspecified (2) HTN (hypertension) Current Visit: Yes Status: Chronic Assessment and plan: Pt remains slighly above goal blood pressure. Will adjust medications, Cozaar to 75mg po daily. Qualifiers: Hypertension type: essential hypertension Qualified Code(s): I10 - Essential (primary) hypertension (3) Intermittent paresthesia of right hand and foot Current Visit: Yes Status: Resolved Assessment and plan: Resolved. (4) Facial droop Current Visit: Yes Status: Resolved Assessment and plan: Resolved. (5) UTI (urinary tract infection) Current Visit: Yes Status: Suspected Assessment and plan: Urine culture negative, no growth. Pt denies symptoms. Qualifiers: Hematuria presence: without hematuria Qualified Code(s): N39.0 - Urinary tract infection, site not specified (6) DVT prophylaxis Current Visit: Yes Status: Acute Assessment and plan: Lovenox SQ. - Subjective Interval history: Pt was seen and assessed at 0815. She is alert and awake. she denies any symptoms, no headache, blurred vision, dizziness, lightheadedness, photo or phonophobia, no n/v/d, SOB, chest pain, weakness, slurred speech. Pt states that she is back to baseline and is ready to go home. - Constitutional Vitals: Temp Pulse Resp BP Pulse Ox 98.4 F 78 15 145/83 97 05/12/17 06:44 05/12/17 06:44 05/12/17 06:44 05/12/17 06:44 05/12/17 06:44 General appearance: Present: cooperative, A&O X 3, pleasant, no acute distress, answers questions appropriately. Absent: mild distress - Head Head exam: Present: atraumatic, normal inspection, normocephalic - Eye Eye exam: Present: EOMI, normal appearance, conjuntiva pink, sclera anicteric. Absent: nystagmus - Neck Neck exam general surgery: Present: supple, trachea midline. Absent: lymphadenopathy, tenderness - Respiratory Respiratory exam: Present: CTAB. Absent: accessory muscle use, rales, rhonchi, wheezes - Cardiovascular Cardiovascular exam: Present: RRR, +S1, +S2. Absent: diastolic murmur, gallop, rubs, systolic murmur - GI/Abdominal GI/Abdominal exam: Present: normal bowel sounds, soft, no peritoneal signs. Absent: distended, tenderness - Extremities Exam Extremities exam: Present: normal inspection, warm, radial pulses palpable and symmetrical. Absent: calf tenderness, cyanotic, pedal edema, tenderness - Neurological Exam Neurological exam: Present: alert, motor sensory deficit, oriented X3, no focal deficits, strengths equal and symetr throughout. Absent: altered, facial droop , speech deficit - Skin Skin exam: Present: dry, intact, normal color, warm. Absent: rash Internal Medicine: Result - Labs CBC & Chem 7: 05/11/17 04:55 05/11/17 04:55 - ABG Interpretation ABG results: PT/INR, D-dimer PT 10.4 Seconds (9.4-12.1) 05/10/17 11:25 Consult Discharge Plan - Plan Instructions: Transient Ischemic Attack (DC), Chronic Hypertension (DC) Additional Instructions: Follow up with your PCP in the next 7-10 days for a hospital follow up visit. Continue your normal home medications, resume your normal activities as tolerated. Return to the ER as needed for any other problems or concerns or if your symptoms return or worsen. Continue taking ASA as long as it is enteric coated. We will call you if you have any abnormal test results from your urine culture. Referrals: Tayla Negrete MD [Primary Care Provider] - Prescriptions: Simvastatin [Zocor] 20 mg PO HS #30 tablet
[2017-05-12 11:03] VITALS: BP 158/89
== END 2017-05-12 11:35 | disposition home or self-care (01) ==
LOC: 3BNU 10:40 → EMEROO 10:40 → 3BNU 13:38
PROVIDERS: ADMIT Nurse Practitioner; ATTEND Registered Nurse